=== PATIENT | male | born 1980 ===

== ENCOUNTER 2018-10-15 19:45 | Outpatient (CLI) | payer MEDICAID | END 2018-10-15 19:46 | disposition critical access hospital (66) | LOC: EMS 19:45 | PROVIDERS: ATTEND Surgery | DX: R56.9 Unspecified convulsions (principal) | CPT/HCPCS: A0425; A0429; A0999 ==

== ENCOUNTER 2018-10-15 20:02 | Emergency (ER) | payer MEDICAID ==
--- NOTE | 2018-10-15 20:20 | ED Physician Documentation ---
PD HPI ALTERED MENTAL STATUS - Stated complaint Stated Complaint: SZ/AMS/ETOH - History obtained from History obtained from: Patient, Friend, EMS - History of Present Illness Timing - onset: How many minutes ago (The patient is working with a traveling [employer] and is at the beginning of the season. He is brought in by EMS with altered mental status. Coworker said he quickly drank 1/5 of alcohol. Earlier he had said he was wanting to hurt himself and was gesturing with the Bovie knife. A coworker state he did not seem like he was just drinking casually but looked as if he intended to hurt himself. Unknown if there was any concurrent drugs or medications. He arrives to the ER with decreased mentation. EMS reports he did vomit once en route. He was arousable to stimulus for just mumbling. He does have a gag reflex. He is brought in recumbent on his side. There is no report of fall or injury.) Timing - duration: Hours (1/2) Timing - details: Abrupt onset, Still present Quality / character: Unresponsive Associated symptoms: NVD (EMS reports he vomited once). No: Seizure activity (vague report of tremoring as he was passed out but not clear seizure activity) Contributing factors: Intoxicated. 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 He is not responding to verbal. He does have a gag reflex present. He is lying on his side with a nasopharyngeal airway in place. Oxygenation is adequate by monitor. There is no obvious injury. Oral exam was without any lacerations.) - HEENT HEENT: Atraumatic, Pharynx benign - Neck Neck: Supple, no meningeal sign, No adenopathy - Cardiac Cardiac: RRR, No murmur - Respiratory Respiratory: Clear bilaterally - Abdomen Abdomen: Non tender, Non distended. No: Normal bowel sounds (diminished) - Male Male : Deferred - Rectal Rectal: Deferred - Derm Derm: Normal color - Neuro Eye Opening: To Pain Motor: Localizes to Pain Verbal: Incomprehensible GCS Score: 9 Results - Vitals Vitals: Vital Signs - 24 hr 10/15/18 10/15/18 10/15/18 20:11 20:24 20:34 Heart Rate 66 86 60 Respiratory 16 14 16 Rate Blood Pressure 101/77 94/54 L O2 Saturation 96 95 100 10/15/18 10/16/18 21:20 00:25 Heart Rate 64 73 Respiratory 15 14 Rate Blood Pressure 106/77 108/72 O2 Saturation 99 99 Oxygen O2 Source Room air - Labs Labs: Laboratory Tests 10/15/18 10/15/18 10/15/18 20:32 20:32 20:32 WBC 8.4 RBC 4.21 L Hgb 13.5 L Hct 40.0 L MCV 94.8 H MCH 32.1 H MCHC 33.9 RDW 13.6 Plt Count 247 MPV 6.6 L Neut # (Auto) 4.9 Lymph # (Auto) 2.7 Arthur # (Auto) 0.6 Eos # (Auto) 0.1 Baso # (Auto) 0.1 Absolute Nucleated RBC 0.00 Nucleated RBC % 0.0 Sodium 139 Potassium 3.2 L Chloride 104 Carbon Dioxide 23 Anion Gap 12.0 BUN 12 Creatinine 0.9 Estimated GFR (MDRD) 94 Glucose 114 H Calcium 8.1 L Total Bilirubin 0.4 AST 26 ALT 29 Alkaline Phosphatase 87 Total Protein 6.6 L Albumin 3.7 Globulin 2.9 Albumin/Globulin Ratio 1.3 Lipase 24 TSH 0.94 Salicylates < 6.0 Acetaminophen < 10 L Ethyl Alcohol 154.9 10/15/18 21:48 WBC RBC Hgb Hct MCV MCH MCHC RDW Plt Count MPV Neut # (Auto) Lymph # (Auto) Arthur # (Auto) Eos # (Auto) Baso # (Auto) Absolute Nucleated RBC Nucleated RBC % Sodium Potassium Chloride Carbon Dioxide Anion Gap BUN Creatinine Estimated GFR (MDRD) Glucose Calcium Total Bilirubin AST ALT Alkaline Phosphatase Total Protein Albumin Globulin Albumin/Globulin Ratio Lipase TSH Salicylates Acetaminophen Ethyl Alcohol 142.6 - Rads (name of study) head CT Radiology: Prelim report reviewed (No intracranial bleed, no acute process.), EMP read contemporaneously, See rad report PD MEDICAL DECISION MAKING - ED course Complexity details: re-evaluated patient (He had only a moderately elevated alcohol level. I rechecked it at 1 hour to ensure it was and going up significantly given the report of ingestion just prior to being brought here. He does seem to be leveled off and slightly lower. Basic labs were normal. His blood sugar was adequate. Head CT was normal. We watched him in the ER with IV fluids for several hours and he subsequently awoke. He was in an angry mood and reluctant to talk about the events. He initially would not answer the question if he was trying to hurt himself by drinking so quickly.), considered differential (He arise via EMS with altered mentation. He is kept on his side and had elevated to prevent reflux. He does not have any vomiting while here. He rouses just to mumbling and slight eye-opening to sternal rub. He does have a gag reflex present. There is report of quick drinking of alcohol. On clear if there is any drug use 2. He subsequently awakens enough to say he did have some marijuana and denies other drugs. There is report of him making suicidal statements earlier in the day. Concern would be for overdose.), d/w patient
[2018-10-15] MEDS ORDERED: SODIUM CHLORIDE 0.9% 1,000 ML IV ONE ×2 (20:24→21:13)
[2018-10-15 20:38] LABS: BASOPHILS # (AUTO) 0.1 10^3/uL (0.0-0.1); BASOPHILS % (AUTO) 0.8 %; EOSINOPHILS # (AUTO) 0.1 10^3/uL (0.0-0.7); EOSINOPHILS % (AUTO) 1.6 %; HGB - HEMOGLOBIN 13.5 g/dL (14.0-18.0); LYMPHOCYTES # (AUTO) 2.7 10^3/uL (1.5-3.5); MEAN CORPUSCULAR HEMOGLOBIN 32.1 pg (27.0-31.0); MEAN CORPUSCULAR HGB CONC 33.9 g/dL (32.0-36.0); MEAN CORPUSCULAR VOLUME 94.8 fL (80.0-94.0); MEAN PLATELET VOLUME 6.6 fL (7.4-11.4); MONOCYTES # (AUTO) 0.6 10^3/uL (0.0-1.0); MONOCYTES % (AUTO) 7.7 %; NEUTROPHILS # (AUTO) 4.9 10^3/uL (1.5-6.6); NEUTROPHILS % (AUTO) 57.9 %; PLT - PLATELET COUNT 247 10^3/uL (130-450); RED BLOOD COUNT 4.21 10^6/uL (4.70-6.10); RED CELL DISTRIBUTION WIDTH 13.6 % (12.0-15.0); WHITE BLOOD COUNT 8.4 x10^3/uL (4.8-10.8)
[2018-10-15 20:53] LABS: ACETAMINOPHEN < 10 ug/mL (10-30); ALBUMIN 3.7 g/dL (3.2-5.5); ALBUMIN/GLOBULIN RATIO 1.3 (1.0-2.2); ALKALINE PHOSPHATASE 87 IU/L (42-121); ALT ALANINE AMINOTRANSFERASE 29 IU/L (10-60); AST ASPARTATE AMINOTRANSFERASE 26 IU/L (10-42); BILIRUBIN,TOTAL 0.4 mg/dL (0.2-1.0); BUN - BLOOD UREA NITROGEN 12 mg/dL (6-20); CALCIUM 8.1 mg/dL (8.5-10.3); CARBON DIOXIDE - CO2 23 mmol/L (21-32); CHLORIDE 104 mmol/L (101-111); CREATININE 0.9 mg/dL (0.6-1.2); GFR - MDRD 94 (>89); GLUCOSE 114 mg/dL (70-100); LIPASE 24 U/L (22-51); SALICYLATE < 6.0 mg/dL; SODIUM 139 mmol/L (135-145); TOTAL PROTEIN 6.6 g/dL (6.7-8.2)
[2018-10-15] MEDS ORDERED: POTASSIUM BICARB 25 MEQ TABLET PO STA (21:04)
[2018-10-15] MEDS ORDERED: POTASSIUM CHLOR 10 MEQ/100 ML 10 MEQ/100 ML BAG IV ONE (21:14)
--- NOTE | 2018-10-15 21:57 | CT Report ---
Reason: altered mentation; lethargic Procedure Date: 10/15/2018 Accession Number: [id number] / [id number] Procedure: CT - HEAD WO CPT Code: FULL RESULT: EXAM: CT HEAD EXAM DATE: 10/15/2018 09:38 PM. CLINICAL HISTORY: Altered mentation; lethargic. COMPARISON: None. TECHNIQUE: Multiaxial CT images were obtained from the foramen magnum to the vertex. Reformats: Sagittal and coronal. IV contrast: None. In accordance with CT protocol optimization, one or more of the following dose reduction techniques were utilized for this exam: automated exposure control, adjustment of mA and/or KV based on patient size, or use of iterative reconstructive technique. FINDINGS: Parenchyma: No intraparenchymal hemorrhage. No evidence of mass, midline shift, or CT findings of infarction. Negro-white differentiation is distinct. Extraaxial Spaces: Normal for age. No subdural or epidural collections identified. Ventricles: Normal in size and position. Sinuses and Orbits: Imaged paranasal sinuses, orbits, and mastoids show no significant abnormality. Bones: No evidence of fracture or calvarial defect. Other: None. IMPRESSION: No acute intracranial CT abnormality. [facility]
[2018-10-16 01:43] LABS: MUDS CUTOFF CONCENTRATIONS CUTOFF CONC BELOW:
[2018-10-16 01:59] LABS: BILIRUBIN,URINE NEGATIVE (NEGATIVE); GLUCOSE, URINE (UA) NEGATIVE (NEGATIVE); KETONES,URINE (UA) NEGATIVE (NEGATIVE); LEUKOCYTE ESTERASE, URINE NEGATIVE (NEGATIVE); NITRITE,URINE NEGATIVE (NEGATIVE); OCCULT BLOOD,URINE NEGATIVE (NEGATIVE); PH,URINE 5.5 PH (5.0-7.5); PROTEIN,URINE NEGATIVE (NEGATIVE); UROBILINOGEN,URINE 0.2 (NORMAL) E.U./dL (NORMAL)
[2018-10-16 02:17] LABS: AMPHETAMINE SCREEN,URINE NEGATIVE (NEGATIVE); BENZODIAZEPINES SCREEN, URINE NEGATIVE (NEGATIVE); CLARITY,URINE CLEAR (CLEAR); COCAINE SCREEN URINE NEGATIVE (NEGATIVE); METHADONE SCREEN, URINE NEGATIVE (NEGATIVE); METHAMPHETAMINES SCREEN, URINE NEGATIVE (NEGATIVE); OPIATE SCREEN, URINE NEGATIVE (NEGATIVE); OXYCODONE SCREEN, URINE NEGATIVE (NEGATIVE); PROPOXYPHENE SCREEN, URINE NEGATIVE (NEGATIVE); TRICYCLIC ANTIDEPRESSANT,URINE NEGATIVE (NEGATIVE)
[2018-10-16 05:59] VITALS: BP 103/69
== END 2018-10-16 07:50 | disposition home or self-care (01) ==
LOC: ED 20:02
DX: T51.92XA Toxic effect of unspecified alcohol, intentional self-harm, initial encounter (principal); R41.82 Altered mental status, unspecified; F32.9 Major depressive disorder, single episode, unspecified
CPT/HCPCS: 36415; 70450; 80053; 80306; 80307; 80320; 80329; 81001; 81003; 83690; 84443; 85025; 87086; 96361; 96365; 99284